=== PATIENT | female | born 1995 | race Caucasian/White ===

== ENCOUNTER 2020-12-05 09:50 | Emergency (ER) | payer SELFPAY ==
[2020-12-05 09:53] VITALS: BP 133/93; PULSE 85; RESP 16; TEMP 36.7; O2SAT 100; BMI 18.8
[2020-12-05 09:56] VITALS: BP 133/93; PULSE 91; RESP 16; O2SAT 100
--- NOTE | 2020-12-05 10:24 | ED_ITS ---
HPI - Dental/Oral General: Chief complaint: Dental/Oral Stated complaint: Abscess in mouth Time Seen by Provider: 12/05/20 10:24 Source: patient Mode of arrival: ambulatory Limitations: no limitations History of Present Illness: HPI Narrative: Patient presents with abscess to the upper mouth. Patient has real poor dental repair. Patient has multiple dental caries and severe decay of the teeth. Patient denies any fever, difficulty swallowing, or severe pain. Review of Systems General: Reports: 10 or more systems reviewed and unremarkable except in HPI and below ENMT: Reports: other (Abscess of the dentition.) Physical Exam Const: COMMON NORMALS: no acute distress and patient oriented x3 GENERAL APPEARANCE: cooperative HENMT: COMMON NORMALS: normocephalic, TM's normal bilaterally and Normal external nose present HEAD & SCALP: normal to inspection and normocephalic NOSE: Normal external nose present TYMPANIC MEMBRANE: TM's normal bilaterally MOUTH: Normal oral and palatal mucosa present and other (Abscess noted to the upper palate. Severe dental decay) THROAT: posterior oropharynx normal Eye: GENERAL EYE: appearance normal, both eyes and all related structures Neck/C-Spine: COMMON NORMALS: full ROM Lymph: LYMPHATIC: no lymphadenopathy noted Chest: COMMONS NORMALS: normal inspection of the chest Resp: COMMON NORMALS: normal respiratory effort EFFORT & INSPECTION: Yes able to speak in complete sentences Cardio: COMMON NORMALS: regular rate and regular rhythm RATE: regular rate RHYTHM: regular rhythm GI: COMMON NORMALS: non-tender Back/Pelvis: COMMON NORMALS: thoracic and lumbar spine normal to inspection Extremity: COMMON NORMALS: normal to inspection Neuro: COMMON NORMALS: patient oriented x3 and moves all extremities Psych: COMMON NORMALS: mental status grossly normal and cooperative Skin: COMMON NORMALS: no rashes or lesions noted GENERAL SKIN EXAM: no rashes or lesions noted Course Vital Signs: Vital signs: Vital Signs Temperature 98.1 F 12/05/20 09:53 Pulse Rate 91 12/05/20 09:56 Respiratory Rate 16 12/05/20 09:56 Blood Pressure 133/93 12/05/20 09:56 Pulse Oximetry 100 12/05/20 09:56 MDM - Dental/Oral MDM Narrative: Medical decision making narrative: Patient came in today for concerns of a abscess in the mouth. On exam in the upper palate there is a dental abscess that has expanded onto the palate. It is draining purulent fluid. Patient denies significant pain. Differential diagnosis includes but not limited to dental decay, dental abscess, cellulitis of the floor mouth. No sign of significant illness was noted. No signs of Ramírez's angina or a retropharyngeal abscess was noted. Patient manage secretions good. Patient be placed on clindamycin 303 times a day for 7 days. Patient has an appointment to follow-up with dentist in 2 days. Discharge Plan Discharge Patient Disposition: Home Clinical Impression: Dental abscess Condition: Stable Prescriptions: New clindamycin HCl 150 mg capsule 300 mg PO TID 7 Days Qty: 42 RF: 0 Discharge Orders: Discharge ED (Routine); Ordered 12/05/20 Ordered By: Rogelio Flores Discharge Diet: Usual diet Discharge Activity: Increase activity as tolerated Patient Instructions: Dental Abscess (ED) Activity Restrictions/Additional Instructions: Good oral care. Rinse mouth frequently with warm salt water. Take antibiotic as directed. Use Tylenol or ibuprofen for pain. Follow-up with dentist for d efinitive care. Coding Level of Care Code ED Electronic Security Specialist for Sandy Reynaga
== END 2020-12-05 10:37 | disposition home or self-care (01) ==
PROVIDERS: Emergency Provider Nurse Practitioner Family
DX: K04.7 Periapical abscess without sinus (principal)
CPT/HCPCS: 12345; 99282

== ENCOUNTER → 2021-08-10 14:56 | Outpatient (BNVA) | payer SELFPAY | PROVIDERS: Referring Provider Nurse Practitioner Family; Visit Provider Podiatrist Foot & Ankle Surgery | DX: S92.354A Nondisplaced fracture of fifth metatarsal bone, right foot, initial encounter for closed fracture (principal); X58.XXXA Exposure to other specified factors, initial encounter | CPT/HCPCS: 73630 ==

== ENCOUNTER → 2021-08-24 08:47 | Outpatient (BNVA) | payer SELFPAY | PROVIDERS: Visit Provider Podiatrist Foot & Ankle Surgery | DX: S92.351D Displaced fracture of fifth metatarsal bone, right foot, subsequent encounter for fracture with routine healing (principal); X58.XXXD Exposure to other specified factors, subsequent encounter | CPT/HCPCS: 73630 ==

== ENCOUNTER → 2021-09-26 09:18 | Outpatient (BNVA) | payer SELFPAY | PROVIDERS: Visit Provider Podiatrist Foot & Ankle Surgery | DX: S92.351D Displaced fracture of fifth metatarsal bone, right foot, subsequent encounter for fracture with routine healing (principal); X50.1XXD Overexertion from prolonged static or awkward postures, subsequent encounter | CPT/HCPCS: 73630 ==

== ENCOUNTER 2021-10-24 13:01 | Emergency (ER) | payer SELFPAY ==
--- NOTE | 2021-10-24 13:08 | ED_ITS ---
HPI - Syncope General: Chief Complaint: Syncope Stated Complaint: SYNCOPAL EPISODES Time Seen by Provider: 10/24/21 13:03 History of Present Illness: HPI narrative: 26-year-old female presents emergency room with complaint of syncopal episode. She was at a daycare outside washing some children play and eat she felt lightheaded and dizzy went to sit down and slumped over in a chair. Was witnessed by bystanders. She denies any chest pain or shortness of breath she did have 1/5 metatarsal fracture this had delayed healing she still wearing a cam boot for 3 3 months later. She denies any swelling leg she has not had any sudden onset of chest pain or shortness of breath. There is no shortness of breath there other symptoms that accompanied this episode. She denies any fever sweats or chills. MD complaint: loss of consciousness Onset (ago): minute(s) Description of event: tonic-clonic movements Prodromal symptoms: none Witnessed: No Context: standing up Associated symptoms: Reports abdominal pain; Deny chest pain or fever(s) Treatments prior to arrival: none Review of Systems Const: Denies: fever(s), chills, body aches, change in appetite, fatigue or malaise ENMT: Denies: throat pain, ear or mastoid pain, nasal discharge or nasal congestion Card: Denies: chest pain, edema, dyspnea on exertion or orthopnea Resp: Denies: dyspnea, productive cough or non-productive cough GI: Reports: abdominal pain : Denies: flank pain, difficulty voiding, dysuria, urinary frequency or urinary urgency Skin/Breast: Denies: rash or pruritus PFS ED PFSH: Medical History (Updated 10/24/21 @ 15:59 by Kevyn Jackson DO) Fracture of fifth metatarsal bone of right foot Physical Exam Const: COMMON NORMALS: no acute distress GENERAL APPEARANCE: cooperative and comfortable ORIENTATION/CONSCIOUSNESS: Yes awake, Yes oriented to person, Yes oriented to place and Yes oriented to time HENMT: COMMON NORMALS: normocephalic, atraumatic and hearing grossly normal bilaterally HEAD & SCALP: normocephalic and atraumatic Neck/C-Spine: COMMON NORMALS: no JVD Resp: COMMON NORMALS: normal respiratory effort, No retractions, No use of accessory muscles and clear to auscultation bilaterally AUSCULTATION: clear to auscultation bilaterally Cardio: COMMON NORMALS: no JVD, regular rate, regular rhythm and No murmurs present (Cardio) RATE: regular rate RHYTHM: regular rhythm GI: COMMON NORMALS: Soft to palpation and No hepatosplenomegaly present AUSCULTATION: Yes normoactive bowel sounds PALPATION: Yes Soft to palpation, No Tenderness to palpation present (GI), No Guarding due to palpation present (GI) and Yes No hepatosplenomegaly present Extremity: COMMON NORMALS: normal to inspection, capillary refill normal, no clubbing, cyanosis or edema, no calf tenderness and no pedal edema Neuro: SENSORIUM/ORIENTATION: Yes oriented to person, Yes oriented to place and Yes oriented to time Skin: COMMON NORMALS: no rashes or lesions noted GENERAL SKIN EXAM: no rashes or lesions noted Course Vital Signs: Vital signs: Vital Signs Temperature 98.4 F 10/24/21 13:59 Pulse Rate 76 10/24/21 13:59 Respiratory Rate 18 10/24/21 13:59 Blood Pressure 120/76 10/24/21 13:59 Pulse Oximetry 95 10/24/21 13:59 MDM - Syncope MDM Narrative: Medical decision making narrative: Patient improved with IV fluids. Orthostatics reviewed. We will go ahead and discharge patient on he should vasovagal episode labs reviewed. Neurologically intact no focal neurologic deficit noted at time presentation or time discharge. Lab Data: Labs: Lab Results 10/24/21 10/24/21 10/24/21 13:16 13:25 13:25 WBC 5.7 10^3/uL 10^3/ uL (4.0-10.0) RBC 5.03 10^6/uL 10^6 /uL (4.1-5.3) Hgb 12.6 g/dL g/dL (11.5-15.3) Hct 40.1 % % (37.0-47.0) MCV 79.7 fl L fl (81-99) MCH 25.0 pg L pg (28.0-34.0) MCHC 31.4 g/dL g/dL (30.0-36.0) RDW 12.1 % % (12.1-15.1) Plt Count 197 10^3/cmm 10^3 /cmm (130-400) MPV 10.9 fL H fL (7.4-10.4) Neut % (Auto) 59.5 % % Lymph % (Auto) 30.8 % % [place] % (Auto) 8.0 % % Eos % (Auto) 0.9 % % Baso % (Auto) 0.3 % % Neut # (Auto) 3.40 10^3/uL 10^3 /uL (1.8-7.7) Lymph # (Auto) 1.8 10^3/uL 10^3/ uL (0.8-4.8) [place] # (Auto) 0.5 10^3/uL 10^3/ uL (0.2-0.9) Eos # (Auto) 0.1 10^3/uL 10^3/ uL (0.0-0.8) Baso # (Auto) 0.0 10^3/uL 10^3/ uL (0.0-0.1) Nucleated RBC % (a uto) 0 % % Nucleated RBCs # 0.0 /100WBC /100W BC Sodium 141 mmol/L mmol/L (136-145) Potassium 3.8 mmol/L mmol/L (3.5-5.1) Chloride 105 mmol/L mmol/L (98-107) Carbon Dioxide 23 mmol/L mmol/L (22-29) Anion Gap 16.8 (5-19) BUN 10 mg/dL mg/dL (6-20) Creatinine 0.8 mg/dL mg/dL (0.5-0.9) GFR Calculation 87.4 mL/min L mL/ min (90-130) Glucose 120 mg/dL H mg/dL (65-115) POC Glucose 135 mg/dL H mg/dL (70-110) Calculated Osmolal ity 292 mOsm/kg mOsm/ kg (285-295) Calcium 8.9 mg/dL mg/dL (8.5-10.5) Total Bilirubin 0.9 mg/dL mg/dL (0.15-1.2) AST 16 U/L U/L (0-32) ALT 15 U/L U/L (0-33) Alkaline Phosphata se 51 IU/L IU/L (35-105) Total Protein 7.3 g/dL g/dL (6.6-8.7) Albumin 4.1 g/dL g/dL (3.5-5.2) Globulin 3.2 g/dL g/dL (1.3-4.6) Discharge Plan Discharge Patient Disposition: Home Clinical Impression: Vasovagal syncope Condition: Stable Prescriptions: No Action No Known Home Medications RF: 0 Discharge Orders: Discharge ED (Routine); Ordered 10/24/21 Ordered By: Kevyn Jackson Discharge Diet: Usual diet Discharge Activity: Resume usual activity Patient Instructions: Opioid Safety Activity Restrictions/Additional Instructions: No exertional activities. Recheck with your primary care doctor within the next week. Coding Level of Care Code ED Wheelchair Van Operator First Responder for Chg Fwd Exam Comprehensive
[2021-10-24 13:09] VITALS: BP 119/78; PULSE 79; RESP 18; TEMP 36.9; O2SAT 98; BMI 19.1
[2021-10-24 13:19] LABS: Glucose Point of Care 135 mg/dL (70-110)
[2021-10-24 13:32] LABS: Basophils % 0.3 %; Eosinophils # 0.1 10^3/uL (0.0-0.8); Eosinophils % 0.9 %; Hematocrit 40.1 % (37.0-47.0); Hemoglobin 12.6 g/dL (11.5-15.3); Lymphocytes # 1.8 10^3/uL (0.8-4.8); Lymphocytes % 30.8 %; Mean Corpuscular HGB Conc 31.4 g/dL (30.0-36.0); Mean Corpuscular Volume 79.7 fl (81-99); Mean Platelet Volume 10.9 fL (7.4-10.4); Monocytes # 0.5 10^3/uL (0.2-0.9); Neutrophils % 59.5 %; Nucleated Red Blood Cells % 0 %; Platelet Count 197 10^3/cmm (130-400); Red Blood Count 5.03 10^6/uL (4.1-5.3); Red Cell Distribution Width 12.1 % (12.1-15.1); White Blood Count 5.7 10^3/uL (4.0-10.0)
[2021-10-24] MEDS: sodium chloride 0.9% 1,000 ML 999 ML IV (13:39)
[2021-10-24 13:42] VITALS: BP 113/75; BP 116/73; BP 120/76; PULSE 106; PULSE 69; PULSE 77
[2021-10-24 13:59] VITALS: BP 120/76; PULSE 76; RESP 18; TEMP 36.9; O2SAT 95
[2021-10-24 14:00] LABS: Alanine Aminotransferase 15 U/L (0-33); Albumin Level 4.1 g/dL (3.5-5.2); Alkaline Phosphatase 51 IU/L (35-105); Anion Gap 16.8 (5-19); Aspartate Amino Transferase 16 U/L (0-32); Blood Urea Nitrogen 10 mg/dL (6-20); Calcium 8.9 mg/dL (8.5-10.5); Carbon Dioxide 23 mmol/L (22-29); Chloride 105 mmol/L (98-107); Globulin 3.2 g/dL (1.3-4.6); Glomerular Filtration Rate 87.4 mL/min (90-130); Glucose 120 mg/dL (65-115); Osmolality Calculated 292 mOsm/kg (285-295); Potassium 3.8 mmol/L (3.5-5.1); Sodium 141 mmol/L (136-145); Total Bilirubin 0.9 mg/dL (0.15-1.2); Total Protein 7.3 g/dL (6.6-8.7)
== END 2021-10-24 16:23 | disposition home or self-care (01) ==
PROVIDERS: Emergency Provider Family Medicine
DX: R55 Syncope and collapse (principal)
CPT/HCPCS: 36416; 80053; 82962; 85025; 96360; 99283; J7030

== ENCOUNTER → 2021-11-08 13:02 | Outpatient (BNVA) | payer SELFPAY | PROVIDERS: Visit Provider Podiatrist Foot & Ankle Surgery | DX: S92.351A Displaced fracture of fifth metatarsal bone, right foot, initial encounter for closed fracture (principal); X58.XXXA Exposure to other specified factors, initial encounter | CPT/HCPCS: 73630 ==

== ENCOUNTER → 2022-02-02 13:54 | Outpatient (BNVA) | payer SELFPAY | PROVIDERS: Visit Provider Podiatrist Foot & Ankle Surgery | DX: S92.351A Displaced fracture of fifth metatarsal bone, right foot, initial encounter for closed fracture (principal); X58.XXXA Exposure to other specified factors, initial encounter | CPT/HCPCS: 73630 ==

== ENCOUNTER → 2022-03-06 13:11 | Outpatient (BNVA) | payer SELFPAY | PROVIDERS: Visit Provider Podiatrist Foot & Ankle Surgery | DX: S92.351G Displaced fracture of fifth metatarsal bone, right foot, subsequent encounter for fracture with delayed healing (principal); X58.XXXA Exposure to other specified factors, initial encounter | CPT/HCPCS: 73630 ==